=== PATIENT | male | born 1965 | race Asian ===

== ENCOUNTER → 2016-08-11 | Outpatient (CLI) | payer OTHER ==
--- NOTE | 2016-08-11 19:07 | DX ---
Left Foot - 3 views Indication: Pain. No trauma. Technique: AP, oblique, and lateral views. Comparison: Left foot series dated July 27, 2009 Findings: The normally mineralized bones are anatomically aligned. No periosteal reaction to suggest stress response. No fracture or bone lesion. Smooth cortical thickening along the medial diaphyseal s haft of the 2nd metatarsal is unchanged since 2009. Impression: Negative. No evidence of stress fracture, bone lesion, or arthropathy.
== END ==
LOC: BMCIMAGING 18:34
PROVIDERS: ATTEND Family Medicine
DX: M79.672 Pain in left foot (principal)